=== PATIENT | male | born 1965 | race Caucasian/White ===

== ENCOUNTER 2016-11-14 05:50 | Emergency (ER) | payer BC ==
--- NOTE | 2016-11-14 06:25 | Emergency Department Record ---
History of Present Illness - General Chief Complaint: Abdominal Pain Stated Complaint: "PANCREATITIS AGAIN" Time Seen by Provider: 11/14/16 06:17 Source: Patient Mode of Arrival: Ambulatory Limitations: No limitations - History of Present Illness Initial Comments: 51 yo male presents with abdominal pain, nausea, vomiting that started on Friday morning. The pain is in the epigastric area. He has a history of pancreatitis in the past. He was admitted in August with similar symptoms. No fevers or chills. He had pizza and a couple of beers prior to the onset of the symptoms. Since Friday he has tried to limit to liquids and broths but he continues to have pain and vomiting. At times he has seen streaks of blood in the vomit. PCP Tu. BARBARA Koo. Complaint: Abdominal pain Onset/Timin -: Days(s) Location: LUQ, RUQ Radiation: Epigastric Migration to: No migration Severity: Moderate Quality: Burning, Dull, Sharp Consistency: Constant, Getting worse Improves With: Nothing Worsens With: Nothing Context: Other Associated Symptoms: Vomiting - Related Data Home Medications Medication Instructions Recorded Confirmed Last Taken Levothyroxine Sodium [Synthroid] 175 mcg PO DAILY 09/20/15 11/14/16 09/20/15 Losartan Potassium [Cozaar] 100 mg PO DAILY 09/20/15 11/14/16 09/20/15 Metoprolol Tartrate [Lopressor] 25 mg PO DAILY 09/20/15 11/14/16 09/20/15 Simvastatin [Zocor] 40 mg PO DAILY 09/20/15 11/14/16 09/20/15 Dexlansoprazole [Dexilant] 60 mg PO DAILY 08/21/16 11/14/16 Unknown Previous Rx's Medication Instructions Recorded Lipase/Protease/Amylase [Maty Conde 1 each PO DAILY #120 capsule. 08/26/16 36,000 Units Capsule] Allergies Allergy/AdvReac Type Severity Reaction Status Date / Time No Known Drug Allergies Allergy Verified 09/20/15 17:21 Travel Screening - Travel/Exposure Within Last 30 Days Have you traveled within the last 30 days?: No - Travel/Exposure Within Last Year Have you traveled outside the [place] in the last year?: No - Additonal Travel Details Have you been exposed to anyone with a communicable illness?: No - Travel Symptoms Symptom Screening: None Review of Systems Constitutional: Denies: Chills, Fever, Malaise, Weakness Eyes: Denies: Eye discharge ENT: Denies: Congestion, Ear pain, Epistaxis, Throat pain Respiratory: Denies: Cough, Dyspnea Cardiovascular: Denies: Chest pain, Palpitations, Syncope Endocrine: Denies: Fatigue Gastrointestinal: Reports: As per HPI, Abdominal pain, Nausea, Vomiting. Denies : Constipation, Diarrhea, Hematemesis, Hematochezia, Melena Genitourinary: Denies: Frequency, Hematuria Musculoskeletal: Denies: Arthralgia, Back pain, Joint swelling, Myalgia Skin: Denies: Bruising, Change in color, Rash Neurological: Denies: Confusion, Headache, Weakness Psychiatric: Denies: Anxiety Hematological/Lymphatic: Denies: Blood Clots, Easy bleeding, Easy bruising, Swollen glands Past Medical History - SOCIAL HISTORY Smoking Status: Heavy tobacco smoker (>10/day) Alcohol Use Comment: former Drug Use: None - RESPIRATORY Hx Respiratory Disorders: No - CARDIOVASCULAR Hx Cardio Disorders: Yes Hx Hypertension: Yes - NEURO Hx Neuro Disorders: Yes Hx CVA: Yes (X 2 in 2011) - GI Hx GI Disorders: Yes Hx Abdominal Pain: Yes Hx Reflux: Yes Hx Pancreatitis: Yes Hx Ulcer: Yes - Hx Genitourinary Disorders: No - ENDOCRINE Hx Endocrine Disorders: Yes Hx Thyroid Disease: Yes (Hypo) - MUSCULOSKELETAL Hx Musculoskeletal Disorders: Yes Hx Back Injury: Yes (3 ruptured disks, 2 herniated disks, Spinal stenosis) - PSYCH Hx Psych Problems: No - HEMATOLOGY/ONCOLOGY Hx Hematology/Oncology Disorders: No Family Medical History Any Significant Family History?: Yes Hx Cancer: Grandparents *Cancer Comment: lung Hx HTN: Father Hx Stroke: Father Physical Exam - General General Appearance: Alert, Oriented x3, Cooperative, No acute distress Limitations: No limitations - Head Head exam: Normal inspection - Eye Eye exam: Normal appearance, PERRL. negative: Conjunctival injection, Periorbital swelling - ENT ENT exam: Normal exam, Mucous membranes moist Ear exam: Normal external inspection Nasal Exam: Normal inspection Mouth exam: Normal external inspection Teeth exam: Normal inspection Throat exam: Normal inspection - Neck Neck exam: Normal inspection, Full ROM. negative: Tenderness - Respiratory Respiratory exam: Normal lung sounds bilaterally. negative: Accessory muscle use, Respiratory distress, Rhonchi, Stridor, Wheezes - Cardiovascular Cardiovascular Exam: Regular rate, Normal rhythm, Normal heart sounds - GI/Abdominal GI/Abdominal exam: Soft, Tenderness (tender epigastric and across the upper abdomen). negative: Distended, Rigid - Rectal Rectal exam: Deferred - exam: Deferred - Extremities Extremities exam: Normal inspection, Full ROM, Normal capillary refill. negative: Tenderness - Back Back exam: Denies: CVA tenderness (R), CVA tenderness (L), Tenderness - Neurological Neurological exam: Alert, Normal gait, Oriented X3 - Psychiatric Psychiatric exam: Normal affect, Normal mood. negative: Agitated, Anxious - Skin Skin exam: Dry, Intact, Normal color, Warm Course Vital Signs 11/14/16 11/14/16 05:55 06:00 Temperature 98.0 F 98.0 F Pulse Rate 80 Pulse Rate [ 80 Pulse Ox Probe] Respiratory 20 16 Rate Blood Pressure 194/120 Blood Pressure 194/120 [Left Arm] Pulse Ox 95 96 - Reevaluation(s) Reevaluation #1: EMR reviewed Admission for pancreatitis at [facility] 08/26/16 MRI of the abdomen 10/26/16 No acute process 11/14/16 06:26 Disposition Forms: Patient Portal Access
[2016-11-14] MEDS ORDERED: 0.9 % SODIUM CHLORIDE 1,000 ML BAG IV ONE ×2 (06:27→07:01)
[2016-11-14] MEDS ORDERED: ONDANSETRON HCL IV 4 MG/2 ML VIAL IV ONE (06:27)
[2016-11-14] MEDS ORDERED: PANTOPRAZOLE SODIUM IV 40 MG VIAL IVP ONE (06:28)
[2016-11-14] MEDS ORDERED: HYDROMORPHONE HCL 1 MG/ML CPJ IVP ONE ×2 (06:28→07:32)
[2016-11-14 06:46] LABS: BASO % 0.2 % (0-6); GRAN % 78.4 % (47-80); LYMPH % 11.7 % (16-45); MEAN CELL VOLUME 93.8 fl (81-97); MEAN CORPUSCULAR HEMOGLOBIN 31.9 pg (27-33); MEAN PLATELET VOLUME 9.7 fl (7.4-10.4); MONO % 8.7 % (0-9); PLATELET COUNT 255 K/uL (130-400); RED BLOOD COUNT 5.01 M/uL (4.40-5.70); WHITE BLOOD COUNT W/O DIFF 12.7 K/uL (4.2-12.2)
[2016-11-14 07:01] LABS: ANION GAP 15.3 (7-16); BLOOD UREA NITROGEN 10 mg/dL (9-20); CARBON DIOXIDE 25.7 mmol/L (22-30); CREATININE 0.9 mg/dL (0.66-1.25); EST GLOMERULAR FILTRATION RATE > 60 ml/min; GLUCOSE,RANDOM 108 mg/dL (70-110)
[2016-11-14 07:02] LABS: ALBUMIN 4.6 gm/dL (3.5-5.0); BILIRUBIN,TOTAL 0.99 mg/dL (0.2-1.3); TOTAL PROTEIN 7.3 gm/dL (6.3-8.2)
--- NOTE | 2016-11-14 07:29 | Emergency Department Record ---
History of Present Illness - General Chief Complaint: Abdominal Pain Stated Complaint: "PANCREATITIS AGAIN" Time Seen by Provider: 11/14/16 06:17 Source: Patient Mode of Arrival: Ambulatory Limitations: No limitations - History of Present Illness MD Complaint: Abdominal pain Onset/Timin -: Days(s) Location: LUQ, RUQ Radiation: Epigastric Migration to: No migration Severity: Moderate Quality: Burning, Dull, Sharp Consistency: Constant, Getting worse Improves With: Nothing Worsens With: Nothing Context: Other Associated Symptoms: Vomiting - Related Data Home Medications Medication Instructions Recorded Confirmed Last Taken Levothyroxine Sodium [Synthroid] 175 mcg PO DAILY 09/20/15 11/14/16 09/20/15 Losartan Potassium [Cozaar] 100 mg PO DAILY 09/20/15 11/14/16 09/20/15 Metoprolol Tartrate [Lopressor] 25 mg PO DAILY 09/20/15 11/14/16 09/20/15 Simvastatin [Zocor] 40 mg PO DAILY 09/20/15 11/14/16 09/20/15 Dexlansoprazole [Dexilant] 60 mg PO DAILY 08/21/16 11/14/16 Unknown Previous Rx's Medication Instructions Recorded Lipase/Protease/Amylase [Maty Conde 1 each PO DAILY #120 capsule. 08/26/16 36,000 Units Capsule] Ondansetron [Zofran Odt] 4 mg PO Q4H PRN #15 tab.rapdis 11/14/16 Oxycodone HCl/Acetaminophen 1 tab PO Q6H PRN #10 tab 11/14/16 [Percocet 5mg/325mg] Allergies Allergy/AdvReac Type Severity Reaction Status Date / Time No Known Drug Allergies Allergy Verified 09/20/15 17:21 Travel Screening - Travel/Exposure Within Last 30 Days Have you traveled within the last 30 days?: No - Travel/Exposure Within Last Year Have you traveled outside the [place] in the last year?: No - Additonal Travel Details Have you been exposed to anyone with a communicable illness?: No - Travel Symptoms Symptom Screening: None Review of Systems Constitutional: Denies: Chills, Fever, Malaise, Weakness Eyes: Denies: Eye discharge ENT: Denies: Congestion, Ear pain, Epistaxis, Throat pain Respiratory: Denies: Cough, Dyspnea Cardiovascular: Denies: Chest pain, Palpitations, Syncope Endocrine: Denies: Fatigue Gastrointestinal: Reports: As per HPI, Abdominal pain, Nausea, Vomiting. Denies : Constipation, Diarrhea, Hematemesis, Hematochezia, Melena Genitourinary: Denies: Frequency, Hematuria Musculoskeletal: Denies: Arthralgia, Back pain, Joint swelling, Myalgia Skin: Denies: Bruising, Change in color, Rash Neurological: Denies: Confusion, Headache, Weakness Psychiatric: Denies: Anxiety Hematological/Lymphatic: Denies: Blood Clots, Easy bleeding, Easy bruising, Swollen glands Past Medical History - SOCIAL HISTORY Smoking Status: Heavy tobacco smoker (>10/day) Alcohol Use Comment: former Drug Use: None - RESPIRATORY Hx Respiratory Disorders: No - CARDIOVASCULAR Hx Cardio Disorders: Yes Hx Hypertension: Yes - NEURO Hx Neuro Disorders: Yes Hx CVA: Yes (X 2 in 2010) - GI Hx GI Disorders: Yes Hx Abdominal Pain: Yes Hx Reflux: Yes Hx Pancreatitis: Yes Hx Ulcer: Yes - Hx Genitourinary Disorders: No - ENDOCRINE Hx Endocrine Disorders: Yes Hx Thyroid Disease: Yes (Hypo) - MUSCULOSKELETAL Hx Musculoskeletal Disorders: Yes Hx Back Injury: Yes (3 ruptured disks, 2 herniated disks, Spinal stenosis) - PSYCH Hx Psych Problems: No - HEMATOLOGY/ONCOLOGY Hx Hematology/Oncology Disorders: No Family Medical History Any Significant Family History?: Yes Hx Cancer: Grandparents *Cancer Comment: lung Hx HTN: Father Hx Stroke: Father Physical Exam - General Limitations: No limitations Course Vital Signs 11/14/16 11/14/16 11/14/16 05:55 06:00 06:57 Temperature 98.0 F 98.0 F Pulse Rate 80 Pulse Rate [ 80 82 Pulse Ox Probe] Respiratory 20 16 20 Rate Blood Pressure 194/120 Blood Pressure 194/120 167/99 [Left Arm] Pulse Ox 95 96 95 - Reevaluation(s) Reevaluation #1: 11/14/16 07:28 Labs reviewed, Lipase 416, labs are otherwise grossly unremarkable for an acute process. Reevaluation #2: 11/14/16 07:31 Patient seen and examined, updated on all results, will repeat analgesia and attempt PO challenge. Reevaluation #3: 11/14/16 08:21 Patient appears to be tolerating PO at this time. Following discussion with the patient, he is comfortable with being discharged home with analgesia and strict instructions to return for worsening of his symptoms including vomiting, increased pain, and inability to tolerate food/fluids. Patient appears stable for discharge at this time. Medical Decision Making - Lab Data Result diagrams: 11/14/16 06:25 11/14/16 06:25 Lab Results 11/14/16 11/14/16 11/14/16 Range/Units 06:25 06:25 06:25 WBC 12.7 H (4.2-12.2) K/uL RBC 5.01 (4.40-5.70) M/uL Hgb 16.0 (14.0-18.0) gm/dl Hct 47.0 (42.0-52.0) % MCV 93.8 (81-97) fl MCH 31.9 (27-33) pg MCHC 34.0 (32-36) g/dl RDW 13.0 (11.5-14.5) % Plt Count 255 (130-400) K/uL MPV 9.7 (7.4-10.4) fl Gran % 78.4 (47-80) % Lymphocytes % 11.7 L (16-45) % Monocytes % 8.7 (0-9) % Eosinophils % 1.0 (0-6) % Basophils % 0.2 (0-6) % Sodium 137 (136-145) mmol/L Potassium 3.7 (3.5-5.1) mmol/L Chloride 96 L (98-107) mmol/L Carbon Dioxide 25.7 (22-30) mmol/L Anion Gap 15.3 (7-16) BUN 10 (9-20) mg/dL Creatinine 0.9 (0.66-1.25) mg/dL Estimated GFR > 60 ml/min Random Glucose 108 (70-110) mg/dL Calcium 9.3 (8.5-10.1) mg/dL Total Bilirubin 0.99 (0.2-1.3) mg/dL Direct Bilirubin 0.0 (0-0.3) mg/dL AST 22 (17-59) U/L ALT 38 (21-72) U/L Alkaline Phosphatase 57 (38-126) U/L Total Protein 7.3 (6.3-8.2) gm/dL Albumin 4.6 (3.5-5.0) gm/dL Lipase 416 H (23-300) U/L Disposition Disposition: Discharge Clinical Impression: Pancreatitis Qualifiers: Chronicity: acute Pancreatitis type: unspecified pancreatitis type Acute pancreatitis complication: unspecified Qualified Code(s): K85.90 - Acute pancreatitis without necrosis or infection, unspecified Disposition: Home, Self-Care Condition: (2) Stable Instructions: Pancreatitis (ED) Additional Instructions: Return to ED if your symptoms worsen or if you have any concerns. Follow-up with your family doctor in 3-5 days as directed. Zofran and [place] as needed for nausea/pain symptoms. Prescriptions: Oxycodone HCl/Acetaminophen [Percocet 5mg/325mg] 1 tab PO Q6H PRN #10 tab PRN Reason: Abdominal Pain Ondansetron [Zofran Odt] 4 mg PO Q4H PRN #15 tab.rapdis PRN Reason: Nausea/Vomiting Forms: Patient Portal Access Time of Disposition: 08:25
== END 2016-11-14 08:48 | disposition home or self-care (01) ==
LOC: ER 05:50
DX: K85.90 Acute pancreatitis without necrosis or infection, unspecified (principal); R11.2 Nausea with vomiting, unspecified
CPT/HCPCS: 99284 ×2; 96376; 96374; 96375; 96361; 83690; 85025; 80076; 80048; J2405; J1170; C9113; J7030

== ENCOUNTER 2018-03-01 14:03 | Emergency (ER) | payer BC ==
[2018-03-01] MEDS ORDERED: 0.9 % SODIUM CHLORIDE 1000ML 1,000 ML IV PRN (14:48)
[2018-03-01] MEDS: KETOROLAC 30 MG/ML VIAL IVP ONE (14:57)
[2018-03-01] MEDS: ONDANSETRON HCL IV 4 MG/2 ML VIAL IV ONE (14:57)
[2018-03-01] MEDS: HYDROMORPHONE HCL 2 MG/ML VIAL IVP ONE (14:58)
[2018-03-01 15:12] LABS: BASO % 0.2 % (0-6); EOS % 1.1 % (0-6); GRAN % 75.4 % (47-80); HEMATOCRIT 51.4 % (42.0-52.0); HEMOGLOBIN 17.4 gm/dl (14.0-18.0); LYMPH % 13.7 % (16-45); MEAN CELL VOLUME 94.3 fl (81-97); MEAN CORPUSCULAR HEMOGLOBIN 31.9 pg (27-33); MEAN CORPUSCULAR HGB CONC 33.9 g/dl (32-36); MEAN PLATELET VOLUME 9.6 fl (7.4-10.4); MONO % 9.6 % (0-9); PLATELET COUNT 277 K/uL (130-400); RED BLOOD COUNT 5.45 M/uL (4.40-5.70); RED CELL DISTRIBUTION WIDTH 13.5 % (11.5-14.5); WHITE BLOOD COUNT W/O DIFF 12.5 K/uL (4.2-12.2)
[2018-03-01 15:26] LABS: BLOOD UREA NITROGEN 12 mg/dL (6-20); CREATININE 0.9 mg/dL (0.7-1.2); EST GLOMERULAR FILTRATION RATE > 60 mL/min
[2018-03-01 15:27] LABS: TOTAL PROTEIN 8.1 g/dL (6.6-8.7)
[2018-03-01 15:28] LABS: GLUCOSE,RANDOM 108 mg/dL (74-109)
[2018-03-01 15:31] LABS: ALBUMIN 4.8 g/dL (4.0-5.0); ALKALINE PHOSPHATASE 49 U/L (40-129); ALT/SGPT 22 U/L (<41); AST/SGOT 20 U/L (10.0-50.0); LIPASE 114 U/L (13-60)
[2018-03-01 15:44] LABS: BILIRUBIN,DIRECT < 0.2 mg/dL (0-0.3)
--- NOTE | 2018-03-01 16:20 | Emergency Department Record ---
History of Present Illness - General Chief Complaint: General Stated Complaint: RT SIDE PAIN Time Seen by Provider: 03/01/18 14:22 Mode of Arrival: Ambulatory - History of Present Illness Initial Comments: right upper quad pain which started 2 days ago and he has had pancreatitis before MD Complaint: Abdominal pain Onset/Timin -: Days(s) Location: RUQ Severity scale (1-10): 6 Quality: Burning Consistency: Intermittent Improves With: Nothing - Related Data Previous Rx's Medication Instructions Recorded Oxycodone HCl/Acetaminophen 1 tab PO Q6H PRN #12 tab 03/01/18 [Percocet 5mg/325mg] Allergies Allergy/AdvReac Type Severity Reaction Status Date / Time No Known Drug Allergies Allergy Verified 03/01/18 14:07 Travel Screening - Travel/Exposure Within Last 30 Days Have you traveled within the last 30 days?: Yes Location Detail:: [place] - Travel/Exposure Within Last Year Have you traveled outside the [place] in the last year?: No - Additonal Travel Details Have you been exposed to anyone with a communicable illness?: No - Travel Symptoms Symptom Screening: None Review of Systems Reviewed: No additional complaints except as noted below Constitutional: Reports: As per HPI. Denies: Chills, Fever, Malaise, Night sweats, Weakness, Weight change Eyes: Reports: As per HPI. Denies: Eye discharge, Eye pain, Photophobia, Vision change ENT: Reports: As per HPI. Denies: Congestion, Dental pain, Ear pain, Epistaxis , Hearing loss, Throat pain Respiratory: Reports: As per HPI. Denies: Cough, Dyspnea, Hemoptysis, Stridor, Wheezes Cardiovascular: Reports: As per HPI. Denies: Arrhythmia, Chest pain, Dyspnea on exertion, Edema, Murmurs, Orthopnea, Palpitations, Paroxysmal nocturnal dyspnea, Rheumatic Fever, Syncope Endocrine: Reports: As per HPI. Denies: Fatigue, Heat or cold intolerance, Polydipsia, Polyuria Gastrointestinal: Reports: As per HPI, Abdominal pain. Denies: Constipation, Diarrhea, Hematemesis, Hematochezia, Melena, Nausea, Vomiting Genitourinary: Reports: As per HPI. Denies: Dysuria, Frequency, Hematuria, Incontinence, Retention, Testicular pain, Testicular mass, Urgency Musculoskeletal: Reports: As per HPI. Denies: Arthralgia, Back pain, Gout, Joint swelling, Myalgia, Neck pain Skin: Reports: As per HPI. Denies: Bruising, Change in color, Change in hair/ nails, Lesions, Pruritus, Rash Neurological: Reports: As per HPI. Denies: Abnormal gait, Confusion, Headache, Numbness, Paresthesias, Seizure, Tingling, Tremors, Vertigo, Weakness Psychiatric: Reports: As per HPI. Denies: Anxiety, Auditory hallucinations, Depression, Homicidal thoughts, Suicidal thoughts, Visual hallucinations Hematological/Lymphatic: Reports: As per HPI. Denies: Anemia, Blood Clots, Easy bleeding, Easy bruising, Swollen glands Past Medical History - SOCIAL HISTORY Smoking Status: Heavy tobacco smoker (>10/day) Alcohol Use: Occasional Drug Use: None - RESPIRATORY Hx Respiratory Disorders: No - CARDIOVASCULAR Hx Cardio Disorders: Yes Hx Hypertension: Yes - NEURO Hx Neuro Disorders: Yes Hx CVA: Yes (X 2 in 2011) - GI Hx GI Disorders: Yes Hx Abdominal Pain: Yes Hx Reflux: Yes Hx Pancreatitis: Yes Hx Ulcer: Yes - Hx Genitourinary Disorders: No - ENDOCRINE Hx Endocrine Disorders: Yes Hx Thyroid Disease: Yes (Hypo) - MUSCULOSKELETAL Hx Musculoskeletal Disorders: Yes Hx Back Injury: Yes (3 ruptured disks, 2 herniated disks, Spinal stenosis) - PSYCH Hx Psych Problems: No - HEMATOLOGY/ONCOLOGY Hx Hematology/Oncology Disorders: No Family Medical History Any Significant Family History?: Yes Hx Cancer: Grandparents *Cancer Comment: lung Hx HTN: Father Hx Stroke: Father Physical Exam - General General Appearance: Alert, Oriented x3, Cooperative, No acute distress - Head Head exam: Normal inspection - Eye Eye exam: Normal appearance, PERRL Pupils: Normal accommodation - ENT ENT exam: Normal exam, Mucous membranes moist, Normal external ear exam, Normal orophraynx, TM's normal bilaterally Ear exam: Normal external inspection. negative: External canal tenderness Nasal Exam: Normal inspection. negative: Discharge, Sinus tenderness Mouth exam: Normal external inspection, Tongue normal Teeth exam: Normal inspection. negative: Dental caries Throat exam: Normal inspection. negative: Tonsillar erythema, Tonsillar exudate - Neck Neck exam: Normal inspection, Full ROM. negative: Tenderness - Respiratory Respiratory exam: Normal lung sounds bilaterally. negative: Respiratory distress - Cardiovascular Cardiovascular Exam: Regular rate, Normal rhythm, Normal heart sounds - GI/Abdominal GI/Abdominal exam: Soft, Normal bowel sounds. negative: Tenderness - Rectal Rectal exam: Deferred - exam: Deferred - Extremities Extremities exam: Normal inspection, Full ROM, Normal capillary refill. negative: Tenderness - Back Back exam: Reports: Normal inspection, Full ROM. Denies: Muscle spasm, Rash noted, Tenderness - Neurological Neurological exam: Alert, Normal gait, Oriented X3, Reflexes normal - Psychiatric Psychiatric exam: Normal affect, Normal mood - Skin Skin exam: Dry, Intact, Normal color, Warm Course Vital Signs 03/01/18 03/01/18 14:12 15:31 Temperature 99 F Pulse Rate 80 Pulse Rate [ 66 Right] Respiratory 20 20 Rate Blood Pressure 189/123 Blood Pressure 138/85 [Right Arm] Pulse Ox 100 Medical Decision Making - Data Complexity MDM Data: Labs Ordered and/or Reviewed (WBC 12,500), X-Ray Ordered and/or Reviewed (CT scan showed pancreatitis and possible duodenitis) - Lab Data Result diagrams: 03/01/18 14:20 03/01/18 14:20 Lab Results 03/01/18 03/01/18 Range/Units 14:20 14:20 WBC 12.5 H (4.2-12.2) K/uL RBC 5.45 (4.40-5.70) M/uL Hgb 17.4 (14.0-18.0) gm/dl Hct 51.4 (42.0-52.0) % MCV 94.3 (81-97) fl MCH 31.9 (27-33) pg MCHC 33.9 (32-36) g/dl RDW 13.5 (11.5-14.5) % Plt Count 277 (130-400) K/uL MPV 9.6 (7.4-10.4) fl Gran % 75.4 (47-80) % Lymphocytes % 13.7 L (16-45) % Monocytes % 9.6 H (0-9) % Eosinophils % 1.1 (0-6) % Basophils % 0.2 (0-6) % Sodium 142 (136-145) mmol/L Potassium 3.8 (3.4-4.5) mmol/L Chloride 94 L (98-107) mmol/L Carbon Dioxide 28.0 (22-29) mmol/L Anion Gap 20.0 H (7-16) BUN 12 (6-20) mg/dL Creatinine 0.9 (0.7-1.2) mg/dL Estimated GFR > 60 mL/min Random Glucose 108 (74-109) mg/dL Calcium 9.8 (8.6-10.0) mg/dL Total Bilirubin 0.80 (0.2-1.0) mg/dL Direct Bilirubin < 0.2 (0-0.3) mg/dL AST 20 (10.0-50.0) U/L ALT 22 (<41) U/L Alkaline Phosphatase 49 (40-129) U/L Total Protein 8.1 (6.6-8.7) g/dL Albumin 4.8 (4.0-5.0) g/dL Lipase 114 H (13-60) U/L Disposition Clinical Impression: Pancreatitis Qualifiers: Chronicity: acute Pancreatitis type: unspecified pancreatitis type Acute pancreatitis complication: no infection or necrosis Qualified Code(s): K85.90 - Acute pancreatitis without necrosis or infection, unspecified Disposition: Home, Self-Care Condition: (1) Good Instructions: Pancreatitis (ED) Additional Instructions: clear liquids for 48 hours Prescriptions: Oxycodone HCl/Acetaminophen [Percocet 5mg/325mg] 1 tab PO Q6H PRN #12 tab PRN Reason: Analgesia Forms: Patient Portal Access Time of Disposition: 16:36 Quality - Quality Measures Quality Measures: N/A - Blood Pressure Screening Does Patient Have Any of the Following: No Blood Pressure Classification: Hypertensive Reading Systolic Measurement: 189 Diastolic Measurement: 123 Screening for High Blood Pressure: < First Hypertensive BP, F/U Documented > [ [id number]] First Hypertensive Follow-up Interventions: Referral to alternative/primary care provider.
[2018-03-01 16:44] LABS: URINE APPEARANCE CLEAR; URINE BILIRUBIN NEGATIVE (NEGATIVE); URINE BLOOD SMALL (NEGATIVE); URINE COLOR YELLOW; URINE GLUCOSE (UA) NEGATIVE (NEGATIVE); URINE KETONE 15 mg/dL (NEGATIVE); URINE LEUKOCYTE ESTERASE NEGATIVE (NEGATIVE); URINE NITRITE NEGATIVE (NEGATIVE); URINE PROTEIN NEGATIVE (NEGATIVE); URINE UROBILINOGEN 0.2 E.U./dL (0.20 - 1.00)
[2018-03-01 17:02] LABS: URINE EPITHELIAL CELLS NONE SEEN (FEW); URINE RBC 0 - 2 (NONE SEEN); URINE WBC NONE SEEN (0-2/hpf)
--- NOTE | 2018-03-02 10:19 | CT SCAN REPORT ---
EXAM: CT OF THE ABDOMEN AND PELVIS WITHOUT CONTRAST HISTORY: RIGHT UPPER QUADRANT PAIN. TECHNIQUE: Sequential axial images were obtained from the diaphragms through the ischiorectal fossa without intravenous or oral contrast administration. FINDINGS: The liver and gallbladder appear normal. There is mild wall thickening of the third portion of the duodenum with adjacent reactive lymph nodes present. There is equivocal mild inflammatory change of the pancreatic head. It is difficult to determine whether the etiology is related to duodenum or pancreatitis. Correlation with patient's enzyme levels is recommended. The adrenal glands and kidneys appear normal. The spleen appears normal. The small bowel appears normal. The colon appears normal. The appendix is visualized and appears normal. The urinary bladder appears normal. The osseous structures are normal. IMPRESSION: MILD WALL THICKENING OF THE THIRD PORTION OF THE DUODENUM. THERE ARE SMALL ADJACENT LYMPH NODES PRESENT. THERE IS EQUIVOCAL MILD INFLAMMATORY CHANGE OF THE PANCREATIC HEAD. IT IS DIFFICULT TO DETERMINE WHETHER THE SOURCE OF THE INFLAMMATORY CHANGE IS FROM THE PANCREAS OR THE DUODENUM. JOB NUMBER: [id number] [facility]
== END 2018-03-01 16:53 | disposition home or self-care (01) ==
LOC: ER 14:03
DX: K85.90 Acute pancreatitis without necrosis or infection, unspecified (principal); I10 Essential (primary) hypertension; F17.210 Nicotine dependence, cigarettes, uncomplicated
CPT/HCPCS: 74176; 80048; 80076; 81001; 83690; 85025; 96374; 96375; 99284; J1885; J2405

== ENCOUNTER 2018-03-02 05:26 | Inpatient (IN) | payer BC ==
[2018-03-02] MEDS ORDERED: ONDANSETRON HCL IV 4 MG/2 ML VIAL IV ONE (05:44)
[2018-03-02] MEDS ORDERED: 0.9 % SODIUM CHLORIDE 1,000 ML BAG IV ONE (05:44)
[2018-03-02] MEDS ORDERED: HYDROMORPHONE HCL 2 MG/ML VIAL IVP ONE (05:44)
--- NOTE | 2018-03-02 05:45 | Emergency Department Record ---
History of Present Illness - General Chief Complaint: Abdominal Pain Stated Complaint: PANCREATITIS Time Seen by Provider: 03/02/18 05:37 Source: Patient Mode of Arrival: Ambulatory Limitations: No limitations - History of Present Illness Initial Comments: The patient is here due to a 4 day hx of upper AP and intermittent vomiting. He has a long hx of pancreatitis similar to this and was in the ED yesterday for the same thing. At that visit his Lipase was mildly elevated and he did have a CT that demonstrated pancreas inflammation. The patient felt better after the pain medicines so he elected to go home but was told if his condition worsened to return for admission. MD Complaint: Abdominal pain Onset/Timin -: Days(s) Location: Epigastric, LUQ, RUQ Severity: Moderate Severity scale (1-10): 10 Consistency: Constant, Getting worse - Related Data Previous Rx's Medication Instructions Recorded Oxycodone HCl/Acetaminophen 1 tab PO Q6H PRN #12 tab 03/01/18 [Percocet 5mg/325mg] Allergies Allergy/AdvReac Type Severity Reaction Status Date / Time No Known Drug Allergies Allergy Verified 03/01/18 14:07 Travel Screening - Travel/Exposure Within Last 30 Days Have you traveled within the last 30 days?: No - Travel/Exposure Within Last Year Have you traveled outside the [place] in the last year?: No - Additonal Travel Details Have you been exposed to anyone with a communicable illness?: No - Travel Symptoms Symptom Screening: None Review of Systems Constitutional: Denies: Chills, Fever Eyes: Denies: Eye discharge ENT: Denies: Congestion Respiratory: Denies: Cough, Dyspnea Cardiovascular: Denies: Arrhythmia, Chest pain Endocrine: Denies: Fatigue Gastrointestinal: Reports: Abdominal pain, Nausea, Vomiting. Denies: Diarrhea Genitourinary: Denies: Dysuria Musculoskeletal: Denies: Arthralgia Past Medical History - SOCIAL HISTORY Smoking Status: Heavy tobacco smoker (>10/day) Alcohol Use: None Drug Use: None - RESPIRATORY Hx Respiratory Disorders: No - CARDIOVASCULAR Hx Cardio Disorders: Yes Hx Hypertension: Yes - NEURO Hx Neuro Disorders: Yes Hx CVA: Yes (X 2 in 2010) - GI Hx GI Disorders: Yes Hx Abdominal Pain: Yes Hx Reflux: Yes Hx Pancreatitis: Yes Hx Ulcer: Yes - Hx Genitourinary Disorders: No - ENDOCRINE Hx Endocrine Disorders: Yes Hx Thyroid Disease: Yes (Hypo) - MUSCULOSKELETAL Hx Musculoskeletal Disorders: Yes Hx Back Injury: Yes (3 ruptured disks, 2 herniated disks, Spinal stenosis) - PSYCH Hx Psych Problems: No - HEMATOLOGY/ONCOLOGY Hx Hematology/Oncology Disorders: No Family Medical History Any Significant Family History?: Yes Hx Cancer: Grandparents *Cancer Comment: lung Hx HTN: Father Hx Stroke: Father Physical Exam - General General Appearance: Alert, Oriented x3, Cooperative, No acute distress - Head Head exam: Atraumatic, Normocephalic, Normal inspection - Eye Eye exam: Normal appearance, PERRL - ENT Throat exam: Normal inspection. negative: Tonsillar erythema, Tonsillar exudate - Neck Neck exam: Normal inspection, Full ROM. negative: Tenderness - Respiratory Respiratory exam: Normal lung sounds bilaterally. negative: Respiratory distress - Cardiovascular Cardiovascular Exam: Regular rate, Normal rhythm, Normal heart sounds - GI/Abdominal GI/Abdominal exam: Soft, Tenderness (There is mild to moderate epigastric tenderness.). negative: Distended, Guarding, Rebound, Rigid - Extremities Extremities exam: Normal inspection, Full ROM, Normal capillary refill. negative: Tenderness - Back Back exam: Reports: Normal inspection - Neurological Neurological exam: Alert, Normal gait. negative: Abnormal gait, Motor sensory deficit - Skin Skin exam: negative: Rash Course Vital Signs 03/02/18 05:33 Temperature 98.5 F Pulse Rate [ 69 Pulse Ox Probe] Respiratory 20 Rate Blood Pressure 187/126 [Left Arm] Pulse Ox 95 - Reevaluation(s) Reevaluation #1: The patient is doing better at this time. His pain is improved and he does not request any more pain medicines at this time. 03/02/18 06:06 Reevaluation #2: Due to the persistent pain the patient will be admitted to the hospital. I will discuss the case with Dr. Moore at 6:45 am. 03/02/18 06:15 Medical Decision Making - Lab Data Result diagrams: 03/02/18 05:45 03/02/18 05:45 Disposition Disposition: Admit Clinical Impression: Pancreatitis Qualifiers: Chronicity: acute Pancreatitis type: unspecified pancreatitis type Acute pancreatitis complication: unspecified Qualified Code(s): K85.90 - Acute pancreatitis without necrosis or infection, unspecified Disposition: Still a Patient at [facility] Decision to Admit: Admit from ER Decision to Admit Date: 03/02/18 Decision to Admit Time: 06:16 Accepting Physician: Teresa Time Discussed w/Accepting Physician: 06:16 Condition: (2) Stable Time of Disposition: 06:16 Quality - Quality Measures Quality Measures: N/A - Blood Pressure Screening View Details: Yes Does Patient Have Any of the Following: Active Dx of HTN Blood Pressure Classification: Pre-Hypertensive BP Reading Systolic Measurement: 145 Diastolic Measurement: 89 Screening for High Blood Pressure: Patient Exclusion, Hx of HTN [[id number]]
[2018-03-02] MEDS ORDERED: PANTOPRAZOLE SODIUM IV 40 MG VIAL IVP ONE (05:53)
[2018-03-02 05:55] LABS: BASO % 0.2 % (0-6); EOS % 1.3 % (0-6); GRAN % 79.1 % (47-80); HEMATOCRIT 49.8 % (42.0-52.0); HEMOGLOBIN 16.8 gm/dl (14.0-18.0); LYMPH % 10.5 % (16-45); MEAN CELL VOLUME 95.4 fl (81-97); MEAN CORPUSCULAR HEMOGLOBIN 32.2 pg (27-33); MEAN CORPUSCULAR HGB CONC 33.7 g/dl (32-36); MEAN PLATELET VOLUME 9.2 fl (7.4-10.4); MONO % 8.9 % (0-9); PLATELET COUNT 270 K/uL (130-400); RED BLOOD COUNT 5.22 M/uL (4.40-5.70); RED CELL DISTRIBUTION WIDTH 13.4 % (11.5-14.5); WHITE BLOOD COUNT W/O DIFF 12.7 K/uL (4.2-12.2)
[2018-03-02 06:02] LABS: BLOOD UREA NITROGEN 12 mg/dL (6-20); CREATININE 0.9 mg/dL (0.7-1.2); EST GLOMERULAR FILTRATION RATE > 60 mL/min
[2018-03-02 06:03] LABS: TOTAL PROTEIN 7.4 g/dL (6.6-8.7)
[2018-03-02 06:05] LABS: GLUCOSE,RANDOM 121 mg/dL (74-109)
[2018-03-02 06:08] LABS: ALBUMIN 4.4 g/dL (4.0-5.0); ALKALINE PHOSPHATASE 41 U/L (40-129); ALT/SGPT 19 U/L (<41); AST/SGOT 17 U/L (10.0-50.0); BILIRUBIN,DIRECT < 0.2 mg/dL (0-0.3); LIPASE 80 U/L (13-60)
[2018-03-02] MEDS ORDERED: 0.9 % SODIUM CHLORIDE 1000ML 1,000 ML IV PRN (06:47)
[2018-03-02] MEDS ORDERED: PANTOPRAZOLE SODIUM 40 MG TABLET PO SCH (07:00)
[2018-03-02] MEDS: HYDROMORPHONE HCL 2 MG/ML VIAL IV PRN ×5 (07:20→23:10)
[2018-03-02] MEDS ORDERED: NICOTINE 21 MG/24 HOUR PATCH TD SCH (08:15)
[2018-03-02] MEDS: NICOTINE 21 MG/24 HOUR PATCH TD SCH (08:29)
[2018-03-02] MEDS ORDERED: METOPROLOL TART 25 MG TABLET PO SCH (10:00)
[2018-03-02] MEDS: LOSARTAN POTASSIUM 100 MG TABLET PO SCH (10:25)
[2018-03-02] MEDS: METOPROLOL TART 25 MG TABLET PO SCH ×2 (10:25→23:05)
[2018-03-02] MEDS: ENOXAPARIN 40 MG/0.4 ML SYR SQ SCH (10:25)
[2018-03-02] MEDS: 0.9 % SODIUM CHLORIDE 1000ML 1,000 ML IV PRN ×2 (12:44→19:23)
[2018-03-02] MEDS: ONDANSETRON HCL IV 4 MG/2 ML VIAL IVP PRN ×3 (15:33→23:09)
[2018-03-03] MEDS: 0.9 % SODIUM CHLORIDE 1000ML 1,000 ML IV PRN ×2 (00:30→06:09)
[2018-03-03] MEDS: HYDROMORPHONE HCL 2 MG/ML VIAL IV PRN ×2 (03:23→07:54)
[2018-03-03] MEDS: ONDANSETRON HCL IV 4 MG/2 ML VIAL IVP PRN ×2 (03:23→07:55)
[2018-03-03] MEDS ORDERED: PATIENT OWN MED: DEXILANT 60 MG PO SCH (07:00)
[2018-03-03 07:02] LABS: BASO % 0.3 % (0-6); EOS % 2.8 % (0-6); GRAN % 67.7 % (47-80); HEMATOCRIT 44.2 % (42.0-52.0); HEMOGLOBIN 14.2 gm/dl (14.0-18.0); LYMPH % 19.8 % (16-45); MEAN CELL VOLUME 99.1 fl (81-97); MEAN CORPUSCULAR HEMOGLOBIN 31.8 pg (27-33); MEAN CORPUSCULAR HGB CONC 32.1 g/dl (32-36); MEAN PLATELET VOLUME 9.8 fl (7.4-10.4); MONO % 9.4 % (0-9); PLATELET COUNT 234 K/uL (130-400); RED BLOOD COUNT 4.46 M/uL (4.40-5.70); RED CELL DISTRIBUTION WIDTH 13.4 % (11.5-14.5); WHITE BLOOD COUNT W/O DIFF 7.9 K/uL (4.2-12.2)
--- NOTE | 2018-03-03 07:05 | ULTRASOUND REPORT ---
EXAM: COMPLETE ABDOMEN ULTRASOUND HISTORY: RIGHT UPPER QUADRANT PAIN, PANCREATITIS. TECHNIQUE: Complete real-time ultrasound examination of the abdomen was obtained. Comparison: Abdomen ultrasound dated 08/27/16. Abdomen CT performed yesterday on 03/01/18, report of the prior CT is not as yet available within PACS. FINDINGS: The pancreas appears slightly heterogeneous which may be related to the history provided of pancreatitis. A similar appearance was seen on the prior ultrasound of 08/27/16 as well. No definite peripancreatic fluid collection or discreet pancreatic mass identified. The abdominal aorta appears negative with no aneurysm seen. The IVC was negative as seen. The liver has a somewhat coarsened echogenicity which may represent some diffuse fatty infiltration of the liver, however, no definite focal hepatic mass or intrahepatic biliary dilatation seen. The common duct was seen and was of normal caliber. No gallstones seen within the gallbladder and no pericholecystic fluid collection seen. The music theory professor indicates a negative sonographic Thompson's sign. The right kidney measures 12 cm in length with no hydronephrosis evident. The left kidney measures 12 cm in length as well with no hydronephrosis evident. Small cyst associated with the lateral border of the left kidney measuring about 1.4 cm in size. This was seen on the prior ultrasound as well and measured about 1.3 cm in size at that time, essentially unchanged. The spleen appears negative. IMPRESSION: 1. SLIGHTLY HETEROGENEOUS APPEARANCE OF THE PANCREAS SIMILAR TO THAT SEEN ON MAY BE RELATED TO PANCREATITIS. 2. NO GALLSTONES OR BILIARY DILATATION SEEN. 3. NO HYDRONEPHROSIS EVIDENT. SMALL LEFT RENAL CYST SIMILAR TO BEFORE. 4. INCREASED ECHOGENICITY OF THE LIVER MAY BE RELATED TO SOME DIFFUSE FATTY INFILTRATION OF THE LIVER. JOB NUMBER: [id number] [facility]
[2018-03-03 07:26] LABS: BLOOD UREA NITROGEN 8 mg/dL (6-20); CREATININE 0.9 mg/dL (0.7-1.2); EST GLOMERULAR FILTRATION RATE > 60 mL/min; GLUCOSE,RANDOM 100 mg/dL (74-109); LIPASE 41 U/L (13-60)
[2018-03-03] MEDS: ENOXAPARIN 40 MG/0.4 ML SYR SQ SCH (09:12)
[2018-03-03] MEDS: LOSARTAN POTASSIUM 100 MG TABLET PO SCH (09:12)
[2018-03-03] MEDS: METOPROLOL TART 25 MG TABLET PO SCH (09:13)
[2018-03-03] MEDS: NICOTINE 21 MG/24 HOUR PATCH TD SCH (09:13)
--- NOTE | 2018-03-03 10:20 | History and Physical Report ---
DATE: 03/02/2018 CHIEF COMPLAINT: Epigastric and right upper quadrant abdominal pain. HISTORY OF PRESENT ILLNESS: This 53-year-old male presented to the emergency department x2 with epigastric and right upper quadrant abdominal pain. Initially I saw him in the emergency department. His lipase was 114 and his pain was resolved with 1 mg of Dilaudid. He went home on a clear liquid diet and to see if he could tolerate it as an outpatient and let it resolve. He came back at 5:[address] Lam, admitted to the hospital for pain control and acute pancreatitis. Ultrasound was also done this morning. CT scan was done yesterday. The CT scan yesterday showed inflammation of the pancreas and possibly duodenum. The lipase went down to 80 mg at 5:45 a.m. However, he is having more abdominal pain. PAST MEDICAL HISTORY: He has had pancreatitis before and he drinks about 4-5 beers a day. He has hypertension. He has had a CVA x2 in 2010. GERD. He has had pancreatitis and ulcers of the esophagus in the past. Hypothyroidism. Low back pain, 3 ruptured discs, spinal stenosis. PAST SURGICAL HISTORY: T&A. MEDICATIONS: 1. Simvastatin 40 mg a day. 2. Metoprolol tartrate 25 mg twice a day. 3. Losartan 100 mg a day. 4. Levothyroxine 175 mcg a day. 5. Dexilant 60 mg a day. ALLERGIES: No known drug allergies. FAMILY/PSYCHOSOCIAL HISTORY: Grandparents had lung cancer. Father has hypertension. Father had a stroke. He is a heavy smoker and he drinks beer. No drug use. REVIEW OF SYSTEMS: HEENT: No upper respiratory infection symptoms, cough, cold, or congestion. Cardiovascular: No chest pain, palpitations, or arrhythmia. Respiratory: No cough, cold, or congestion. Gastrointestinal: See Chief Complaint. He has nausea, epigastric pain, right upper quadrant pain. No dysphagia. He has had a history of esophageal ulcers in the past. Genitourinary: No dysuria, hematuria, frequency, or burning on urination. Musculoskeletal: He has low back pain with herniated disc x2 or x3. Neurological: No CVA, paralysis, or paresthesias. Endocrine: Hypothyroidism. Integument: No rash, ulcers, change in moles, or yellow skin. PHYSICAL EXAMINATION: VITALS: Height 5 feet 6 inches, weight 234 pounds. Temperature 98.6, pulse 60, blood pressure 160/105, respiratory rate 18, pulse ox 94% on room air. HEENT: Pupils are equal, round, and reactive to light and accommodation. Extraocular muscles are intact. Throat is clear. Nose is clear. Tympanic membranes are mishra. NECK: Supple. No jugular venous distention. No hepatojugular reflux. No carotid bruits. CARDIOVASCULAR: Regular rate and rhythm without murmurs, clicks, rubs, or gallops. RESPIRATORY: Clear to auscultation and percussion. ABDOMEN: Pain in the epigastric and right upper quadrant area. No rebound or rigidity. EXTREMITIES: No pitting edema. No cyanosis, no clubbing. Full range of motion. Peripheral pulses are good. BREASTS: Normal male breasts. RECTAL: Exam deferred. GENITALIA: Deferred. NEUROLOGIC: Cranial nerves II-XII intact. No gross defects. Sensation normal, strength normal. Deep tendon reflexes equal bilaterally with Babinski negative. MENTAL STATUS: Alert and oriented x3. IMPRESSION: 1. Acute pancreatitis on chronic pancreatitis. 2. Possible alcohol use. 3. Previous episodes of pancreatitis. 4. Duodenitis on the CT scan, may be inflammation of the pancreatic head. PLAN: IV fluids 200 mL/hour. Pain control. Consult with Dr. Koo. INPATIENT CERTIFICATION: Admit to inpatient care. Based on my medical assessment, after consideration of patient's risk factors, age, comorbidities, and patient's presenting symptoms and acuity, I expect that this patient will remain in the hospital greater than or equal to 2 midnights and that the services needed warrant inpatient care because of estimated length of stay 2 days. The patient may reasonably be expected to be discharged or transferred to a hospital within 96 hours after admission to [facility]. Services needed are IV pain control and IV fluids, further evaluation by Dr. Koo. I certify that my determination is in accordance with my understanding of Medicare requirements for reasonable and necessary inpatient services. [facility] CENTER[facility]avi
--- NOTE | 2018-03-03 10:20 | Medical Records Consult ---
DATE OF CONSULTATION: 03/02/2018 HISTORY OF PRESENT ILLNESS: The patient is a pleasant 53-year-old gentleman seen in consultation at this time at the request of Dr. Moore for recurring pancreatitis. He reports rather acute onset of right upper quadrant epigastric pain associated with vomiting earlier this week approximately 4 days ago. He came to the emergency department but was ultimately discharged and returned yesterday and subsequently was admitted due to the pain and vomiting. A CT scan obtained demonstrated some inflammatory changes at the head of the pancreas with some small lymph nodes noted in this vicinity. Also noted was possible duodenitis. CT scan is essentially unchanged from previous studies. The patient's reported that he stopped his Dexilant 4 days prior to the onset of symptoms inadvertently and perhaps this was contributing to his symptom complex. He continues to drink alcohol admitted to 2-3 drinks a day and more drinks over the weekend. He states that he has been drinking for probably 30 years or more. His last episode of "pancreatitis" was approximately a year and a half ago in early 2016. Additional medical problems include hypertension, gastroesophageal reflux disease, and in fact he has esophageal ulcers in the past which on recheck endoscopy last completed in May 2016 had resolved. He also last year had an MRCP completed which was fairly unremarkable. Previous ultrasounds including one obtained today failed to demonstrate gallstones or dilated bile duct. There is no ascites noted. He had a colonoscopy in September 2017 with one hyperplastic polyp removed. Additional problems include thyroid imbalance and hyperlipidemia. SOCIAL HISTORY: He smokes 1-1/2 packs of cigarettes daily and, as mentioned, he drinks 2-3 beers a day with more on weekends. MEDICATIONS: Medications listed on our records at [facility] [place] [facility] included Dexilant which has helped significantly in the past, thyroid supplement, losartan, metoprolol, simvastatin. PAST SURGICAL HISTORY: His only previous surgery was a tonsillectomy. REVIEW OF SYSTEMS: Noted on medical record and reviewed. Other than the upper abdominal pain and vomiting and wheezing, all other review was unremarkable. LABORATORY DATA: White blood cell count 12.7, hemoglobin 16.8, hematocrit 49.8, platelet count 270,000. Glucose 121, BUN 12, creatinine 0.9. Electrolytes and aminotransferase levels were unremarkable. Serum lipase was elevated at 80 with the upper limit of normal at 60. RADIOGRAPHIC DATA: CT scan as mentioned suggests possible pancreatitis involving the head of the pancreas and possible duodenitis with small lymph nodes noted in this vicinity. Ultrasound on a verbal report was negative for gallstones, dilated bile duct, or ascites fluid. IMPRESSION: The patient might be suffering with chronic pancreatitis with an acute exacerbation related to alcohol although this is not clear. His last episode was approximately 1-1/2 years ago. He continues to drink. Secondly, he might have had an exacerbation of duodenitis, as he does have a prior history of acid peptic disease including esophageal ulcerations. CT scan suggests possibly inflamed duodenum, and the patient inadvertently stopped taking his Dexilant 4 days prior to the onset of symptoms. RECOMMENDATION: At this point, he is tolerating clear liquids and his diet can be advanced as tolerated. I would like to arrange for an outpatient EGD with endoscopic ultrasound to evaluate for acid peptic changes particularly involving the duodenum and also to evaluate for possible chronic pancreatitis with the endoscopic ultrasound. Further recommendations will be forthcoming. I discussed my recommendations with the patient and his . Thank you for allowing me to participate in his care. CC: El Moore, DO JOHNSON
--- NOTE | 2018-03-03 12:48 | Discharge Note ---
VTE H&P Assessment - Risk for VTE Risk for VTE: Yes Risk Level: Low Risk Assessment Date: 03/02/18 Risk Assessment Time: 13:00 VTE Orders Placed or Will Be Placed: Yes Discharge Medications - Discharge Medications Home Medications: Ambulatory Orders Levothyroxine Sodium [Synthroid] 175 mcg PO DAILY 09/20/15 [Last Taken 03/01/18] Losartan Potassium [Cozaar] 100 mg PO DAILY 09/20/15 [Last Taken 03/01/18] Metoprolol Tartrate [Lopressor] 25 mg PO BID 09/20/15 [Last Taken 03/01/18] Simvastatin [Zocor] 40 mg PO QHS 09/20/15 [Last Taken 03/01/18] Dexlansoprazole [Dexilant] 60 mg PO DAILYAC 08/21/16 [Last Taken 03/01/18] Oxycodone HCl/Acetaminophen [Percocet 5mg/325mg] 1 tab PO Q6H PRN #12 tab [Last Taken Unknown] Nicotine [Nicotine 21Mg] 1 patch TD DAILY patch 03/03/18 [Last Taken Unknown] Discharge Note - Date Date of Discharge Note: 03/03/18 Condition: (2) Stable Instructions: Abdominal Pain (ED) Additional Instructions: follow up with primary Dr. Troncoso in 3-7 days use tylenol or ibuprofen for mild to moderate pain clear liquids for 24 hours than gradually increase his diet to low fat foods No alcohol follow up with Dr. Koo as scheduled for EGD and EUS Forms: Patient Portal Access Diet at Discharge: Advance to Usual Diet
--- NOTE | 2018-03-04 13:00 | Discharge Summary ---
DATE: 03/03/2018 DISCHARGE DIAGNOSES: 1. Acute pancreatitis. 2. Chronic pancreatitis. 3. Alcohol use. ATTENDING PHYSICIAN: El Moore DO REASON FOR HOSPITALIZATION: This 53-year-old male presented to the emergency department with epigastric and right upper quadrant abdominal pain. Was seen in the emergency department x2 with an elevated lipase both times and a CT scan that showed inflammation of the head of the pancreas and the duodenum. SIGNIFICANT FINDINGS: CT scan showing inflammation around the head of the pancreas and the duodenum. WBC 12,700, dropped down to 7900 on discharge. Hemoglobin on discharge is 14.2. Potassium is 4.0. BUN is 8, creatinine 0.9. Lipase was 41 on the day of discharge, 80 yesterday, and 115 the prior day. THERAPY PROVIDED: The patient was given IV fluids and pain medication. HOSPITAL COURSE: He gradually improved. He was tolerating clear liquids on discharge. He has a prescription of Percocet at home. He does not like to take Wells because he had a problem when he took Wells. He had pancreatitis, which is probably a coincidental finding. CONDITION ON DISCHARGE: Much improved. DISCHARGE INSTRUCTIONS: Follow up with Dr. Troncoso, his family doctor, in 3-7 days. Follow up with Dr. Koo as scheduled for an EUS. Continue his PPI. He likes the Dexilant. Drink plenty of fluids. No alcohol. Clear liquids for 24 hours and gradually increase the diet as tolerated. Use Tylenol or ibuprofen for [id number] pain. His primary doctor is Dr. Troncoso in [place]. Dr. Koo is going to set up an EGD/EUS in [place] to check out his duodenum and pancreas. [facility]
== END 2018-03-03 14:32 | disposition home or self-care (01) | DRG 440 ==
LOC: ER 05:26 → OBSVTOIN 06:40 → MEDSURG 06:40
PROVIDERS: ADMIT Emergency Medicine; ATTEND Emergency Medicine
DX: K85.90 Acute pancreatitis without necrosis or infection, unspecified (principal); K86.1 Other chronic pancreatitis; I10 Essential (primary) hypertension; E03.9 Hypothyroidism, unspecified; K21.9 Gastro-esophageal reflux disease without esophagitis; Z86.73 Personal history of transient ischemic attack (TIA), and cerebral infarction without residual deficits; Z87.11 Personal history of peptic ulcer disease; F17.210 Nicotine dependence, cigarettes, uncomplicated; K29.80 Duodenitis without bleeding
CPT/HCPCS: 76700; 80048; 80061; 80076; 83690; 85025; 96361; 96374; 96375; 99223; 99285; J1650; J2405; J7030

== ENCOUNTER 2018-04-28 11:33 | Emergency (ER) | payer BC ==
[2018-04-28] MEDS ORDERED: 0.9 % SODIUM CHLORIDE 1,000 ML BAG IV ONE (11:41)
[2018-04-28] MEDS ORDERED: ONDANSETRON HCL IV 4 MG/2 ML VIAL IVP ONE (11:47)
[2018-04-28] MEDS ORDERED: PANTOPRAZOLE SODIUM IV 40 MG VIAL IVP ONE (11:47)
--- NOTE | 2018-04-28 11:47 | Emergency Department Record ---
History of Present Illness - General Chief Complaint: Abdominal Pain Stated Complaint: PANCREATITIS Time Seen by Provider: 04/28/18 11:40 Source: Patient Mode of Arrival: Ambulatory Limitations: No limitations - History of Present Illness Initial Comments: 53 yo male presents with three days of abdominal pain. He has a history of similar symptoms with pancreatitis. He was admitted to the hospital in February. He does admit to 4-5 beers daily when not in pain. The last beer was about 3 days ago. He is vomiting. No fever. The pain is mid abdomen and radiates to the back. No changes in the stools. He was seen by GI in consultation last admission. MD Complaint: Abdominal pain Onset/Timin -: Days(s) Location: LUQ, RUQ Radiation: None Migration to: No migration Severity: Severe Severity scale (1-10): 9 Quality: Sharp Consistency: Intermittent Improves With: Nothing Worsens With: Nothing Associated Symptoms: Nausea, Vomiting - Related Data Previous Rx's Medication Instructions Recorded Oxycodone HCl/Acetaminophen 1 tab PO Q6H PRN #12 tab 03/01/18 [Percocet 5mg/325mg] Nicotine [Nicotine 21Mg] 1 patch TD DAILY patch 03/03/18 Oxycodone HCl/Acetaminophen 1 each PO Q6H PRN #8 tab 04/28/18 [Percocet 7.5mg/325mg] Allergies Allergy/AdvReac Type Severity Reaction Status Date / Time No Known Drug Allergies Allergy Verified 04/28/18 11:40 Travel Screening - Travel/Exposure Within Last 30 Days Have you traveled within the last 30 days?: No Review of Systems Constitutional: Reports: Malaise. Denies: Chills, Fever Eyes: Denies: Eye discharge ENT: Denies: Congestion, Throat pain Respiratory: Denies: Cough Cardiovascular: Denies: Chest pain, Syncope Endocrine: Denies: Fatigue Gastrointestinal: Reports: Abdominal pain, Nausea, Vomiting. Denies: Constipation, Diarrhea, Hematemesis, Hematochezia Genitourinary: Denies: Dysuria, Frequency, Hematuria Musculoskeletal: Reports: Back pain. 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 reported by patient - GI Hx GI Disorders: Yes Hx Abdominal Pain: Yes Hx Reflux: Yes Hx Pancreatitis: Yes Hx Ulcer: Yes - Hx Genitourinary Disorders: No - ENDOCRINE Hx Endocrine Disorders: Yes Hx Thyroid Disease: Yes (Hypothryroid) - MUSCULOSKELETAL Hx Musculoskeletal Disorders: Yes Hx Back Injury: Yes (3 ruptured disks, 2 herniated disks, Spinal stenosis) - PSYCH Hx Psych Problems: No - HEMATOLOGY/ONCOLOGY Hx Hematology/Oncology Disorders: No Family Medical History Any Significant Family History?: Yes Hx Cancer: Grandparents *Cancer Comment: lung Hx HTN: Father Hx Stroke: Father Physical Exam - General General Appearance: Alert, Oriented x3, Cooperative, No acute distress Limitations: No limitations - Head Head exam: Normal inspection - Eye Eye exam: Normal appearance, PERRL. negative: Conjunctival injection, Scleral icterus - ENT ENT exam: Normal exam, Mucous membranes moist Ear exam: Normal external inspection Nasal Exam: Normal inspection Mouth exam: Normal external inspection - Neck Neck exam: Normal inspection, Full ROM. negative: Tenderness - Respiratory Respiratory exam: Normal lung sounds bilaterally. negative: Respiratory distress, Rhonchi, Stridor, Wheezes - Cardiovascular Cardiovascular Exam: Regular rate, Normal rhythm, Normal heart sounds Peripheral Pulses: 2+: Radial (R), Radial (L) - GI/Abdominal GI/Abdominal exam: Soft, Tenderness. negative: Distended, Guarding, Rebound, Rigid - Rectal Rectal exam: Deferred - exam: Deferred - Extremities Extremities exam: Normal inspection, Full ROM, Normal capillary refill. negative: Pedal edema, Tenderness - Back Back exam: Denies: CVA tenderness (R), CVA tenderness (L) - Neurological Neurological exam: Alert, Oriented X3 - Psychiatric Psychiatric exam: Normal affect, Normal mood. negative: Agitated, Anxious - Skin Skin exam: Dry, Intact, Normal color, Warm Course Vital Signs 04/28/18 11:37 Temperature 98.4 F Pulse Rate 98 H Respiratory 20 Rate Blood Pressure 195/122 Pulse Ox 96 - Reevaluation(s) Reevaluation #1: 04/28/18 12:35 The CMP and Lipase are normal The WBC count is 15 The EMR was reviewed from the January visit. CT reviewed from that time. 04/28/18 12:54 Alcohol is zero 04/28/18 13:25 I did speak with the patient's PCP Dr Shipley. She was updated on his visit and current labs. 04/28/18 14:01 The patient is doing well. Pain is tolerable. No vomiting in the ED. I offered admission OBV vs DC with limit pain medication prescription. He prefers DC at this time. He knows proper diet at home and reasons to return. I reassured him to return anytime if not going well at home. 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 He will be off work today and tomorrow 04/28/18 14:04 04/28/18 14:05 BP improved at DC Medical Decision Making - Lab Data Result diagrams: 04/28/18 11:45 04/28/18 11:45 Disposition Disposition: Discharge Clinical Impression: Abdominal pain Qualifiers: Abdominal location: unspecified location Qualified Code(s): R10.9 - Unspecified abdominal pain Pancreatitis Qualifiers: Chronicity: acute Pancreatitis type: alcohol induced Acute pancreatitis complication: unspecified Qualified Code(s): K85.20 - Alcohol induced acute pancreatitis without necrosis or infection Disposition: Home, Self-Care Condition: (1) Good Instructions: Pancreatitis (ED), Abdominal Pain (ED) Additional Instructions: Return immediately if worse or if you pain is not well controlled Call your doctor for close follow up of this ED visit You may return anytime for a recheck of your examination or labs if you are not getting better Off work today and tomorrow Prescriptions: Oxycodone HCl/Acetaminophen [Percocet 7.5mg/325mg] 1 each PO Q6H PRN #8 tab PRN Reason: Abdominal Pain Forms: Patient Portal Access Time of Disposition: 14:04 Quality - Quality Measures Quality Measures: N/A - Blood Pressure Screening Does Patient Have Any of the Following: Active Dx of HTN Blood Pressure Classification: Hypertensive Reading Systolic Measurement: 195 Diastolic Measurement: 122 Screening for High Blood Pressure: Patient Exclusion, Hx of HTN [[id number]]
[2018-04-28 11:54] LABS: HEMATOCRIT 49.4 % (42.0-52.0); HEMOGLOBIN 16.7 gm/dl (14.0-18.0); MEAN CELL VOLUME 94.8 fl (81-97); MEAN CORPUSCULAR HEMOGLOBIN 32.1 pg (27-33); MEAN CORPUSCULAR HGB CONC 33.8 g/dl (32-36); MEAN PLATELET VOLUME 9.3 fl (7.4-10.4); PLATELET COUNT 269 K/uL (130-400); RED BLOOD COUNT 5.21 M/uL (4.40-5.70); RED CELL DISTRIBUTION WIDTH 13.6 % (11.5-14.5); WHITE BLOOD COUNT W/O DIFF 15.6 K/uL (4.2-12.2)
[2018-04-28 12:02] LABS: BLOOD UREA NITROGEN 16 mg/dL (6-20); CREATININE 0.9 mg/dL (0.7-1.2); EST GLOMERULAR FILTRATION RATE > 60 mL/min
[2018-04-28 12:03] LABS: INR 0.9; PARTIAL THROMBOPLASTIN TIME 29.5 SECONDS (24.5-39.1)
[2018-04-28 12:05] LABS: GLUCOSE,RANDOM 139 mg/dL (74-109)
[2018-04-28 12:07] LABS: ALB/GLOB RATIO 1.5 (1.1-1.8); ALBUMIN 4.8 g/dL (4.0-5.0); ALKALINE PHOSPHATASE 43 U/L (40-129); ALT/SGPT 18 U/L (<41); AST/SGOT 17 U/L (10.0-50.0)
[2018-04-28 12:08] LABS: LIPASE 45 U/L (13-60)
[2018-04-28 12:09] LABS: PLATELET ESTIMATE NORMAL (NORMAL)
[2018-04-28] MEDS ORDERED: HYDROMORPHONE HCL 2 MG/ML VIAL IVP ONE (12:47)
== END 2018-04-28 14:26 | disposition home or self-care (01) ==
LOC: ER 11:33
DX: K85.20 Alcohol induced acute pancreatitis without necrosis or infection (principal); R11.2 Nausea with vomiting, unspecified; I69.931 Monoplegia of upper limb following unspecified cerebrovascular disease affecting right dominant side; I69.941 Monoplegia of lower limb following unspecified cerebrovascular disease affecting right dominant side; I10 Essential (primary) hypertension; F17.210 Nicotine dependence, cigarettes, uncomplicated
CPT/HCPCS: 80053; 80320; 83690; 85027; 85610; 85730; 96374; 96375; 99284; C9113; J2405; J7030